=== PATIENT | female | born 1990 | race African-American/Black ===

== ENCOUNTER 2019-04-16 09:58 | Emergency (ER) | payer OTHER ==
[~2019-04-16] VITALS: Ht 175.3 cm; Wt 111.1 kg
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
--- OUTSIDE RECORDS SUMMARY | 2019-04-16 10:02 | XMS REPORT | Clinical Summary ---
Author Author [facility] Address Unknown Phone Unavailable Care Team Providers Care Assistant Account Manager Name Role Phone Sharpless PCP Allergies No Known Allergies Medications Not on file Active Problems Not on file Social History Date Tobacco Use Types Packs/Day Years Used Never Assessed Sex Assigned at Date Recorded Not on file Industry Job Start Date Occupation Not on file Not on file Not on file Travel End Travel History Travel Start No recent travel history available. Last Filed Vital Signs Not on file Plan of Treatment Not on file Results Not on fileafter 04/15/2018
--- OUTSIDE RECORDS SUMMARY | 2019-04-16 10:02 | XMS REPORT ---
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 Allergies, Adverse Reactions, Alerts This patient has no known allergies or adverse reactions. Medications This patient has no known medications. Results Test Description Test Time Test Comments Text Results Atomic Results Result Comments URINE CULTURE 2017-07-15 10:08:00 CULTURE (BEAKER) (test mhkd=5991) Amikacin (test code=1) Ampicillin + Sulbactam (test code=6) Aztreonam (test code=32) Cefepime (test code=51) Cefoxitin (test code=68) Ceftazidime (test code=27) Ceftriaxone (test code=52) Ertapenem (test code=38) Gentamicin (test code=18) Levofloxacin (test code=22) Meropenem (test code=34) Nitrofurantoin (test code=23) Piperacillin + Tazobactam (test code=29) Tobramycin (test code=25) Trimethoprim + Sulfamethoxazole (test code=47) CULTURE (BEAKER) (test kczj=1681) 80-89,000 col/mL Escherichia coli CULTURE (BEAKER) (test hhyr=7001) 20-29,000 col/mL Beta-hemolytic streptococcus group B, by serological groupingIf this patient is , please refer to ACOG guidelines for appropriate screening and management of colonized women. >100,000 col/mL skin floraURINALYSIS W/ [id number] 17:48:00* Test Item Value Reference Range Comments COLOR (BEAKER) (test tmml=536) Light Yellow CLARITY (BEAKER) (test bwlr=228) Clear SPECIFIC GRAVITY UA (BEAKER) (test kijm=210) 1.010 1.001-1.035 PH UA (BEAKER) (test rmiy=402) 5.0 5.0-8.0 PROTEIN UA (BEAKER) (test pzas=428) Negative Negative GLUCOSE UA (BEAKER) (test yxqh=273) Negative Negative KETONES UA (BEAKER) (test owiu=930) Negative Negative BILIRUBIN UA (BEAKER) (test kpyq=921) Negative Negative BLOOD UA (BEAKER) (test epqv=251) Negative Negative NITRITE UA (BEAKER) (test epuo=510) Negative Negative LEUKOCYTE ESTERASE UA (BEAKER) (test rozl=705) Negative Negative UROBILINOGEN UA (BEAKER) (test wyuc=994) < mg/dL 0.2-1.0 RBC UA (BEAKER) (test gaif=553) < /HPF WBC UA (BEAKER) (test tzpn=645) 3 /HPF BACTERIA (BEAKER) (test fgsk=007) Rare MUCUS (BEAKER) (test rugs=1192) Rare SQUAMOUS EPITHELIAL (BEAKER) (test avji=244) 4 /HPF SOURCE(BEAKER) (test zbnz=9027) SCREEN, [id number] 17:47:00* Test Item Value Reference Range Comments TEST URINE (BEAKER) (test vtbd=290) Negative
== END 2019-04-16 10:37 | disposition home or self-care (01) ==
LOC: FSED 09:58
DX: R30.0 Dysuria (principal); R51 Headache
CPT/HCPCS: 81003; 81025; 82948; 99283

== ENCOUNTER 2019-09-06 22:22 | Emergency (ER) | payer SELFPAY ==
[~2019-09-06] VITALS: Ht 175.3 cm; Wt 113.4 kg
[2019-09-06] MEDS ORDERED: ALBUTEROL/IPRATROPIUM 3 ML NEB NEB ONE (22:45)
[2019-09-06] MEDS ORDERED: ALBUTEROL/IPRATROPIUM 3 ML NEB ONE (22:49)
--- NOTE | 2019-09-06 23:32 | Diagnostic Imaging Report ---
EXAMINATION: CXR 2 VIEW - HOPD INDICATION: Cough, cold for 2 weeks ^[id number] ^2300 COMPARISON: None FINDINGS: PA and lateral views TUBES and LINES: None. LUNGS: Lungs are well inflated. There is no evidence of pneumonia or pulmonary edema. PLEURA: No pleural effusion or pneumothorax. HEART AND MEDIASTINUM: The cardiomediastinal silhouette is unremarkable. BONES AND SOFT TISSUES: No focal osseous lesions. Soft tissues are unremarkable. UPPER ABDOMEN: No free air under the diaphragm. IMPRESSION: No acute thoracic abnormality. Signed by: Dr. Vishnu Fraga MD on 09/06/2019 11:28 PM
== END 2019-09-06 23:28 | disposition home or self-care (01) ==
LOC: FSED 22:22
DX: R50.9 Fever, unspecified (principal); R05 Cough; J20.9 Acute bronchitis, unspecified; J04.0 Acute laryngitis
CPT/HCPCS: 71046; 83518; 87400; 99283